=== PATIENT | female | born 1930 | race Caucasian/White ===

== ENCOUNTER 2016-10-24 02:30 | Day surgery (SDC) | payer MEDICARE ==
[~2016-10-24] VITALS: Ht 157.5 cm; Wt 89.5 kg
[2016-10-24] VITALS (19 sets, daily range): BP systolic 14–159; BP diastolic 35–60; PULSE 53–62; RESP 14–18; O2SAT 93–98
[~2016-10-24 02:30] MED LIST: ACET-2766 PO; ACET1TAB42 PO; ASPI-973 PO; ATEN25TA PO; FUR20 PO; LOSA25TA21 PO; MELO15TA14 PO
[2016-10-24 10:04] LABS: BASOPHILS % (AUTO) 0.4 % (0-3); EOSINOPHILS % (AUTO) 4.8 % (0-5); MONOCYTES % (AUTO) 7.9 % (4-12); Mean Corpuscular Hemoglobin 31.3 pg (27.0-35.0); Mean Corpuscular Volume 92.2 fL (81-100); Platelet Count 178 bil/L (150-400)
[2016-10-24] MEDS ORDERED: Heparin 1,000 Unit/mL 10 mL Inj ONE (11:37)
[2016-10-24] MEDS ORDERED: Nitroglycerin 50,000 mcg/250 mL D5W Premix IV ONE (11:37)
[2016-10-24] MEDS ORDERED: 0.9% Sodium Chloride 500 ML ONE (11:37)
[2016-10-24] MEDS ORDERED: 0.9% Sodium Chloride 1,000 ML ONE (11:37)
--- NOTE | 2016-10-24 17:40 | NUR ---
LORENZA Care of patient assumed at 1530. No bleeding or hematoma at right groin puncture/manual hold. Pedal pulses present. Patient denies pain. Prior to discharge taking PO, ambulate and void. Instructions reviewed with [patient and friend, Julián, written information given and questions answered. Home at 1715 with Julián.
--- NOTE | 2016-10-24 19:42 | CS94 ---
[address] [address] DIAGNOSTIC CARDIAC CATHETERIZATION PATIENT: LAILA VEGAS : 1930 MR#: [id number] ADMIT: 10/24/2016 JOB ID: [id number] SERVICE DATE: 10/24/2016 PROCEDURES PERFORMED: Coronary angiography. INDICATIONS: An 86-year-old woman with severe stenosis now with chest pain and increased shortness of breath. She presents for further assessment by cardiac catheterization. DESCRIPTION OF PROCEDURE: Informed consent was obtained. Patient brought to catheterization laboratory. Bilateral groins were prepped and draped in usual sterile fashion. The right femoral artery was anesthetized with lidocaine. Using modified Seldinger technique and a micropuncture kit, access was obtained and a 5-Tunisian sheath was advanced. A 5-Tunisian JL4 catheter was advanced over a wire and used to cannulate the left coronary and angiographic views obtained. This catheter was removed and a 5-Tunisian JR4 catheter was advanced over a wire and used to cannulate the right coronary artery and angiographic views were obtained. The catheter was removed. The case was ended. Angiography of the right femoral access site was reviewed prior to achieving hemostasis with manual compression. There were no complications. FINDINGS: CORONARIES: 1. Left main. This is a fairly short and has no evidence for obstructive disease (no damping on cannulation) 2. Selective views of the circumflex and left anterior descending artery are obtained. Circumflex artery is a large vessel with multiple branches which are free of obstructive disease. 3. The left anterior descending artery. This vessel has no greater than minor luminal irregularities appreciated. It does wrap around the apex and has some tortuosity as it approaches the apex. 4. Right coronary artery. This vessel has mild luminal irregularities and no obstructive disease. HEMODYNAMICS: Aortic pressure 150/60 (off medications at this time.) Heart rate 59. IMPRESSION: No evidence for obstructive disease. MTDD
== END 2016-10-24 23:59 | disposition home or self-care (01) ==
LOC: SOUO 02:30
PROVIDERS: ATTEND Internal Medicine
DX: I35.0 Nonrheumatic aortic (valve) stenosis (principal); R06.02 Shortness of breath; I10 Essential (primary) hypertension; J44.9 Chronic obstructive pulmonary disease, unspecified; G25.81 Restless legs syndrome; G47.33 Obstructive sleep apnea (adult) (pediatric); Z79.82 Long term (current) use of aspirin; R07.89 Other chest pain
CPT/HCPCS: 36415; 80048; 85025; 93005; 93454; 99152; C1769; J1200; J1644; J7030; J7040; Q9967